=== PATIENT | male | born 1980 | race Asian ===

== ENCOUNTER 2018-10-07 19:46 | Emergency (ER) | payer OTHER ==
[~2018-10-07] VITALS: Ht 160 cm; Wt 70.3 kg
[2018-10-07 20:04] VITALS: BP 137/100
== END 2018-10-07 21:18 | disposition home or self-care (01) ==
LOC: ER 19:54
DX: S93.492A Sprain of other ligament of left ankle, initial encounter (principal); Z60.2 Problems related to living alone; W01.0XXA Fall on same level from slipping, tripping and stumbling without subsequent striking against object, initial encounter; Y93.89 Activity, other specified; Y92.89 Other specified places as the place of occurrence of the external cause; Y99.8 Other external cause status
CPT/HCPCS: 73610-TC